=== PATIENT | female | born 1930 | race Caucasian/White ===

== ENCOUNTER 2017-05-09 09:43 | Inpatient (IN) | payer MEDICARE ==
[2017-05-09] MEDS ORDERED: SODIUM CHLORIDE 0.9% 500 ML IV STA (10:15)
--- NOTE | 2017-05-09 10:19 | ED ---
General Adult HPI - General Chief complaint: Shortness of Breath Stated complaint: Chest pain Time Seen by Provider: 05/09/17 09:55 Source: patient, family, RN notes reviewed Mode of arrival: wheelchair Limitations: no limitations - History of Present Illness Initial comments: This is an 86-year-old female presents emergency Department complaining of shortness of breath this morning. Patient states anytime she gets up and moves is much worse. Patient denies any chest pain or palpitation. Patient denies any recent cough. Patient denies any recent fever chills per patient denies abdominal pain patient denies nausea vomiting diarrhea. Patient states his morning she was a little bit lightheaded but no longer lightheaded. Patient states he was she sits up in bed she feels more short of breath than normal. Patient denies any calf swelling patient denies any increased edema. Patient states she does have a past history of congestive heart failure. - Related Data Home Medications Medication Instructions Recorded Confirmed Aspirin 325 mg PO DAILY 06/06/14 05/09/17 Furosemide [Lasix] 40 mg PO DAILY 06/06/14 05/09/17 Levothyroxine Sodium [Synthroid] 50 mcg PO DAILY 06/06/14 05/09/17 Lisinopril [Zestril] 2.5 mg PO HS 06/06/14 05/09/17 Metoprolol Tartrate [Lopressor] 50 mg PO BID 06/06/14 05/09/17 Pantoprazole Sodium [Protonix] 40 mg PO DAILY 06/06/14 05/09/17 Simvastatin [Zocor] 20 mg PO HS 06/06/14 05/09/17 Cholecalciferol (Vitamin D3) 2,000 unit PO DAILY 05/09/17 05/09/17 [Vitamin D3] traZODone HCL 50 mg PO HS PRN 05/09/17 05/09/17 Allergies Allergy/AdvReac Type Severity Reaction Status Date / Time No Known Allergies Allergy Verified 05/09/17 11:10 Review of Systems ROS Statement: Those systems with pertinent positive or pertinent negative responses have been documented in the HPI. ROS Other: All systems not noted in ROS Statement are negative. Past Medical History Past Medical History: GERD/Reflux, Hyperlipidemia, Hypertension, Thyroid Disorder History of Any Multi-Drug Resistant Organisms: None Reported Past Surgical History: AICD, Tonsillectomy Additional Past Surgical History / Comment(s): vein stripping Past Psychological History: No Psychological Hx Reported Smoking Status: Never smoker Past Alcohol Use History: None Reported General Exam - General Exam Comments Initial Comments: GENERAL: Patient is well-developed and well-nourished. Patient is nontoxic and well- hydrated and is in mild distress. ENT: Neck is soft and supple. No significant lymphadenopathy is noted. Oropharynx is clear. Moist mucous membranes. Neck has full range of motion without eliciting any pain. . EYES: The sclera were anicteric and conjunctiva were pink and moist. Extraocular movements were intact and pupils were equal round and reactive to light. Eyelids were unremarkable. PULMONARY: Unlabored respirations. Good breath sounds bilaterally. No audible rales rhonchi or wheezing was noted. CARDIOVASCULAR: There is a regular rate and rhythm without any murmurs gallops or rubs. ABDOMEN: Soft and nontender with normal bowel sounds. No palpable organomegaly was noted. There is no palpable pulsatile mass. SKIN: Skin is clear with no lesions or rashes and otherwise unremarkable. NEUROLOGIC: Patient is alert and oriented x3. Cranial nerves II through XII are grossly intact. Motor and sensory are also intact. Normal speech, volume and content. Symmetrical smile. MUSCULOSKELETAL: Normal extremities with adequate strength and full range of motion. No lower extremity swelling or edema. No calf tenderness. LYMPHATICS: No significant lymphadenopathy is noted PSYCHIATRIC: Normal psychiatric evaluation. Normal interpersonal interactions appears functionally intact in deals appropriately with others. No signs of depression. No signs of anxiety. Limitations: no limitations Course Vital Signs 05/09/17 05/09/17 05/09/17 09:45 10:07 11:26 Temperature 96.9 F L Pulse Rate 82 75 Respiratory 16 24 16 Rate Blood Pressure 132/80 126/85 O2 Sat by Pulse 97 96 Oximetry 05/09/17 11:35 Temperature Pulse Rate 81 Respiratory 20 Rate Blood Pressure 128/81 O2 Sat by Pulse 95 Oximetry Medical Decision Making - Medical Decision Making EKG shows sinus rhythm at 74 bpm MN interval is 238 QRS is 136 QT interval 426 QTC is 472. EKG shows no ST segment elevation or depression. Patient does have T-wave inversions in leads 1 to aVL as well as V4 through V6. Chest x-ray shows congestive heart failure. I gave the patient Lasix. Brought the patient admitted for continued Lasix on the floor. I spoke with Dr. Gan agreed to admit the patient admitted the patient I consulted cardiology. - Lab Data Result diagrams: 05/09/17 10:04 05/09/17 10:04 Lab Results 05/09/17 05/09/17 05/09/17 Range/Units 10:04 10:04 10:04 WBC 5.1 (3.8-10.6) k/uL RBC 3.59 L (3.80-5.40) m/uL Hgb 10.8 L (11.4-16.0) gm/dL Hct 34.0 (34.0-46.0) % MCV 94.8 (80.0-100.0) fL MCH 30.2 (25.0-35.0) pg MCHC 31.9 (31.0-37.0) g/dL RDW 15.4 (11.5-15.5) % Plt Count 194 (150-450) k/uL Neutrophils % 72 % Lymphocytes % 19 % Monocytes % 4 % Eosinophils % 3 % Basophils % 1 % Neutrophils # 3.6 (1.3-7.7) k/uL Lymphocytes # 1.0 (1.0-4.8) k/uL Monocytes # 0.2 (0-1.0) k/uL Eosinophils # 0.2 (0-0.7) k/uL Basophils # 0.0 (0-0.2) k/uL Hypochromasia Slight PT (9.0-12.0) sec INR (<1.2) APTT (22.0-30.0) sec D-Dimer (<0.60) mg/L FEU Sodium 142 (137-145) mmol/L Potassium 4.9 (3.5-5.1) mmol/L Chloride 110 H (98-107) mmol/L Carbon Dioxide 17 L (22-30) mmol/L Anion Gap 15 mmol/L BUN 44 H (7-17) mg/dL Creatinine 1.98 H (0.52-1.04) mg/dL Est GFR (MDRD) Af Amer 29 (>60 ml/min/1.73 sqM) Est GFR (MDRD) Non-Af 24 (>60 ml/min/1.73 sqM) Glucose 163 H (74-99) mg/dL Calcium 9.0 (8.4-10.2) mg/dL Magnesium 1.7 (1.6-2.3) mg/dL Total Bilirubin 0.8 (0.2-1.3) mg/dL AST 133 H (14-36) U/L ALT 178 H (9-52) U/L Alkaline Phosphatase 239 H (38-126) U/L Total Creatine Kinase 71 (30-135) U/L CK-MB (CK-2) 2.0 (0.0-2.4) ng/mL CK-MB (CK-2) Rel Index 2.8 Troponin I 0.083 H* (0.000-0.034) ng/mL NT-Pro-B Natriuret Pep pg/mL Total Protein 6.5 (6.3-8.2) g/dL Albumin 3.9 (3.5-5.0) g/dL 05/09/17 05/09/17 Range/Units 10:04 10:04 WBC (3.8-10.6) k/uL RBC (3.80-5.40) m/uL Hgb (11.4-16.0) gm/dL Hct (34.0-46.0) % MCV (80.0-100.0) fL MCH (25.0-35.0) pg MCHC (31.0-37.0) g/dL RDW (11.5-15.5) % Plt Count (150-450) k/uL Neutrophils % % Lymphocytes % % Monocytes % % Eosinophils % % Basophils % % Neutrophils # (1.3-7.7) k/uL Lymphocytes # (1.0-4.8) k/uL Monocytes # (0-1.0) k/uL Eosinophils # (0-0.7) k/uL Basophils # (0-0.2) k/uL Hypochromasia PT 12.6 H (9.0-12.0) sec INR 1.3 H (<1.2) APTT 24.8 (22.0-30.0) sec D-Dimer 7.39 H (<0.60) mg/L FEU Sodium (137-145) mmol/L Potassium (3.5-5.1) mmol/L Chloride (98-107) mmol/L Carbon Dioxide (22-30) mmol/L Anion Gap mmol/L BUN (7-17) mg/dL Creatinine (0.52-1.04) mg/dL Est GFR (MDRD) Af Amer (>60 ml/min/1.73 sqM) Est GFR (MDRD) Non-Af (>60 ml/min/1.73 sqM) Glucose (74-99) mg/dL Calcium (8.4-10.2) mg/dL Magnesium (1.6-2.3) mg/dL Total Bilirubin (0.2-1.3) mg/dL AST (14-36) U/L ALT (9-52) U/L Alkaline Phosphatase (38-126) U/L Total Creatine Kinase (30-135) U/L CK-MB (CK-2) (0.0-2.4) ng/mL CK-MB (CK-2) Rel Index Troponin I (0.000-0.034) ng/mL NT-Pro-B Natriuret Pep 5600 pg/mL Total Protein (6.3-8.2) g/dL Albumin (3.5-5.0) g/dL Critical Care Time Critical Care Time: Yes Total Critical Care Time: 35 Disposition Clinical Impression: Acute pulmonary edema Disposition: ADMITTED IP TO THIS HOSP Referrals: Nik Tomlin DO [Primary Care Provider] - 1-2 days Time of Disposition: 12:56
--- NOTE | 2017-05-09 10:34 | XR ---
EXAMINATION TYPE: XR chest 2V DATE OF EXAM: 05/09/2017 COMPARISON: Chest x-ray July 22, 2010 HISTORY: Dyspnea today. TECHNIQUE: Frontal and lateral views of the chest are obtained. FINDINGS: There is persistent cardiomegaly with single lead pacemaker/AICD and atherosclerotic thora cic aorta. There is chronic parenchymal change with mild central vascular congestion felt present the re is blunting of posterior costophrenic angles suggesting tiny effusions. There is additional more p rominent left greater than right bibasilar opacity worrisome for developing infiltrate and/or atelect asis. The osseous structures are demineralized. Some multilevel spurring in the spine is present. IMPRESSION: Consider mild CHF exacerbation as there is cardiomegaly with tiny bilateral pleural effu sions and mild central vascular congestion felt present. In addition underlying left greater than rig ht bibasilar infiltrates and/or atelectasis is noted.
[2017-05-09 10:51] LABS: Basophils % (A) 1 %; CH 29.5; CHCM 31.3; Eosinophils # (A) 0.2 k/uL (0-0.7); Eosinophils % (A) 3 %; HDW 2.51; HGB 10.8 gm/dL (11.4-16.0); Hypochromasia Slight; Luc # (Auto) 0.05; Luc % (Auto) 1; Lymphocytes % (A) 19 %; MCH 30.2 pg (25.0-35.0); MCHC 31.9 g/dL (31.0-37.0); MCV 94.8 fL (80.0-100.0); Mean Platelet Volume 9.6; Monocytes # (A) 0.2 k/uL (0-1.0); Monocytes % (A) 4 %; Neutrophils # (A) 3.6 k/uL (1.3-7.7); Neutrophils % (A) 72 %; RBC 3.59 m/uL (3.80-5.40); RDW 15.4 % (11.5-15.5); WBC 5.1 k/uL (3.8-10.6); WBC (Perox) 5.64
[2017-05-09 10:59] LABS: INR 1.3 (<1.2); Partial Thromboplastin Time 24.8 sec (22.0-30.0); Prothrombin Time 12.6 sec (9.0-12.0)
[2017-05-09 11:00] LABS: Magnesium 1.7 mg/dL (1.6-2.3); Potassium 4.9 mmol/L (3.5-5.1); Total Bilirubin 0.8 mg/dL (0.2-1.3); Total Protein 6.5 g/dL (6.3-8.2)
[2017-05-09] MEDS ORDERED: FUROSEMIDE 10 MG/ML 4 ML VIAL IV STA ×2 (11:25→12:51)
[2017-05-09 11:30] LABS: Troponin I 0.083 ng/mL (0.000-0.034)
--- NOTE | 2017-05-09 12:37 | NM ---
EXAMINATION TYPE: NM pul vent and perfuse DATE OF EXAM: 05/09/2017 COMPARISON: Chest x-ray from earlier today. HISTORY: Dyspnea. TECHNIQUE: Utilizing inhalation of 70.5 mCi Tc 99m DTPA aerosol and intravenous injection of 5.23 mC i of Tc 99m MAA, ventilation and perfusion images are acquired post injection in multiple projections . FINDINGS: Some small matching defects are felt present in the bilateral lower lungs. There is no evidence of mi smatched defects. IMPRESSION: Low probability for pulmonary embolism
[2017-05-09] MEDS ORDERED: NITROGLYCERIN OINT 1 INCH/GM PACKET TOPICAL STA (13:00)
[2017-05-09] MEDS: NITROGLYCERIN OINT 1 INCH/GM PACKET TOPICAL SCH ×2 (17:51→21:04)
[2017-05-09 18:13] VITALS: BMI 21.7
[2017-05-09] MEDS ORDERED: LISINOPRIL 2.5 MG TAB PO SCH (21:00)
[2017-05-09] MEDS ORDERED: ATORVASTATIN 10 MG TAB PO SCH (21:00)
[2017-05-09] MEDS ORDERED: traZODone HCL 50 MG TAB PO PRN (21:00)
[2017-05-09] MEDS: FUROSEMIDE 10 MG/ML 4 ML VIAL IV SCH (21:03)
[2017-05-09] MEDS: METOPROLOL TARTRATE 50 MG TAB PO SCH (21:04)
--- NOTE | 2017-05-09 21:27 | P.HPIM ---
<Jerrica Contreras A - Last Filed: 05/09/17 20:43> History of Present Illness H&P Date: 05/09/17 Chief Complaint: Shortness of breath HISTORY OF PRESENT ILLNESS: This is an 86-year-old female patient of Dr. Sebastian [facility]. Chronic stable medical conditions include GERD hyperlipidemia hypertension hypothyroidism. Patient presented to the emergency department after having an episode of sudden onset shortness of breath, sweating nausea, and falling. Patient awoken from sleep feeling nauseated, sat up on the edge of the bed, felt dizzy, lightheaded , tried to stand up, and fell to her knees. Patient was able to get back up on her feet take herself to the bathroom where she continued to feel nauseated, like she was going to pass out, was extremely short of breath. Return to her bed, stayed there till morning, got up out of bed told her daughter who lives next door of the episode and was subsequently brought in for further evaluation. GEN.: Tired EYES: [None] HEENT: [None] NECK: [None] RESPIRATORY: [Shortness of breath on exertion and sleeps with one pillow ] CARDIOVASCULAR: [None] GASTROINTESTINAL: [None] GENITOURINARY: [None] MUSCULOSKELETAL: [None] LYMPHATICS: [Hypothyroid] HEMATOLOGICAL: [None] PSYCHIATRY: [None] NEUROLOGICAL: [None] SOCIAL HISTORY: Lives alone, daughter lives next-door no smoking or alcohol or illicit drug use FAMILY HISTORY: Myocardial infarction VITAL SIGNS: [Temperature 96.9, pulse 82 respiratory rate 16, blood pressure 132 /80, oxygen saturation 97 % on room air] GENERAL: [Average built, sitting up, comfortable]. EYES: [Pupils equal. Conjunctiva eliel]l. HEENT: [External appearance of nose and ears normal, oral cavity grossly normal] . NECK: [JVD not raised; masses not palpable]. HEART: [First and second heart sounds are normal; no edema]. LUNGS:[ Respiratory rate normal; fair airway clearance]. ABDOMEN: [Soft, nontender, liver spleen not palpable, no masses palpable]. LYMPHATICS: [No lymph nodes palpable in the axilla and neck]. PSYCH: [Alert and oriented x3; mood and affect eliel]l. NEUROLOGICAL: [Cranial nerves grossly intact; no facial asymmetry, power and sensation grossly intact]. Review of Systems GEN.: Tired EYES: [None] HEENT: [None] NECK: [None] RESPIRATORY: [Shortness of breath on exertion and sleeps with one pillow ] CARDIOVASCULAR: [None] GASTROINTESTINAL: [None] GENITOURINARY: [None] MUSCULOSKELETAL: [None] LYMPHATICS: [Hypothyroid] HEMATOLOGICAL: [None] PSYCHIATRY: [None] NEUROLOGICAL: [None] Past Medical History Past Medical History: GERD/Reflux, Hyperlipidemia, Hypertension, Thyroid Disorder History of Any Multi-Drug Resistant Organisms: None Reported Past Surgical History: AICD, Pacemaker, Tonsillectomy Additional Past Surgical History / Comment(s): vein stripping Past Anesthesia/Blood Transfusion Reactions: No Reported Reaction Type of Cardiac Device: Permanent Pacemaker, AICD Device Placement Date:: 2011 Past Psychological History: No Psychological Hx Reported Smoking Status: Never smoker Past Alcohol Use History: Rare - Past Family History Father Family Medical History: Myocardial Infarction (ME) Mother History Unknown: Yes Medications and Allergies Home Medications Medication Instructions Recorded Confirmed Type Aspirin 325 mg PO DAILY 06/06/14 05/09/17 History Furosemide [Lasix] 40 mg PO DAILY 06/06/14 05/09/17 History Levothyroxine Sodium [Synthroid] 50 mcg PO DAILY 06/06/14 05/09/17 History Lisinopril [Zestril] 2.5 mg PO HS 06/06/14 05/09/17 History Metoprolol Tartrate [Lopressor] 50 mg PO BID 06/06/14 05/09/17 History Pantoprazole Sodium [Protonix] 40 mg PO DAILY 06/06/14 05/09/17 History Simvastatin [Zocor] 20 mg PO HS 06/06/14 05/09/17 History Cholecalciferol (Vitamin D3) 2,000 unit PO DAILY 05/09/17 05/09/17 History [Vitamin D3] traZODone HCL 50 mg PO HS PRN 05/09/17 05/09/17 History Allergies Allergy/AdvReac Type Severity Reaction Status Date / Time No Known Allergies Allergy Verified 05/09/17 11:10 Physical Exam Vitals: Vital Signs Temp Pulse Pulse Resp BP BP Pulse Ox 05/09/17 16:00 97.1 F L 82 18 146/74 97 05/09/17 11:35 81 20 128/81 95 05/09/17 11:26 75 16 126/85 96 05/09/17 10:07 24 05/09/17 09:45 96.9 F L 82 16 132/80 97 Intake and Output 05/09/17 05/09/17 05/09/17 06:59 14:59 22:59 Intake Total 360 Balance 360 Intake: Oral 360 Other: Voiding Method Toilet Weight 61.235 kg Patient Weight 05/10/17 06:59 Weight 61.235 kg VITAL SIGNS: [Temperature 96.9, pulse 82 respiratory rate 16, blood pressure 132 /80, oxygen saturation 97 % on room air] GENERAL: [Average built, sitting up, comfortable]. EYES: [Pupils equal. Conjunctiva eliel]l. HEENT: [External appearance of nose and ears normal, oral cavity grossly normal] . NECK: [JVD not raised; masses not palpable]. HEART: [First and second heart sounds are normal; no edema]. LUNGS:[ Respiratory rate normal; fair airway clearance]. ABDOMEN: [Soft, nontender, liver spleen not palpable, no masses palpable]. LYMPHATICS: [No lymph nodes palpable in the axilla and neck]. PSYCH: [Alert and oriented x3; mood and affect eliel]l. NEUROLOGICAL: [Cranial nerves grossly intact; no facial asymmetry, power and sensation grossly intact]. Results CBC & Chem 7: 05/09/17 10:04 05/09/17 10:04 Labs: Abnormal Lab Results - Last 24 Hours (Table) 05/09/17 05/09/17 05/09/17 Range/Units 10:04 10:04 10:04 RBC 3.59 L (3.80-5.40) m/uL Hgb 10.8 L (11.4-16.0) gm/dL PT (9.0-12.0) sec INR (<1.2) D-Dimer (<0.60) mg/L FEU Chloride 110 H (98-107) mmol/L Carbon Dioxide 17 L (22-30) mmol/L BUN 44 H (7-17) mg/dL Creatinine 1.98 H (0.52-1.04) mg/dL Glucose 163 H (74-99) mg/dL AST 133 H (14-36) U/L ALT 178 H (9-52) U/L Alkaline Phosphatase 239 H (38-126) U/L Troponin I 0.083 H* (0.000-0.034) ng/mL 05/09/17 Range/Units 10:04 RBC (3.80-5.40) m/uL Hgb (11.4-16.0) gm/dL PT 12.6 H (9.0-12.0) sec INR 1.3 H (<1.2) D-Dimer 7.39 H (<0.60) mg/L FEU Chloride (98-107) mmol/L Carbon Dioxide (22-30) mmol/L BUN (7-17) mg/dL Creatinine (0.52-1.04) mg/dL Glucose (74-99) mg/dL AST (14-36) U/L ALT (9-52) U/L Alkaline Phosphatase (38-126) U/L Troponin I (0.000-0.034) ng/mL Thrombosis Risk Factor Assmnt - Choose All That Apply Any of the Below Risk Factors Present?: Yes Each Factor Represents 1 point: Heart failure (<1month) Other Risk Factors: Yes Each Risk Factor Represents 3 Points: Age 75 years or older Other congenital or acquired thrombophilia - If yes, enter type in comment: No Thrombosis Risk Factor Assessment Total Risk Factor Score: 4 Thrombosis Risk Factor Assessment Level: Moderate Risk Assessment and Plan Plan: ASSESSMENT: -Sudden onset shortness of breath and weakness sweating nausea vomiting, dizziness lightheaded, in the differential is acute coronary syndrome or unstable angina., -Gastroesophageal reflux disease -Hyperlipidemia -Essential hypertension -Hypothyroidism -Osteoarthritis multiple joints, 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 Plan of care discussed with the patient she is in agreement. <Rubin Gan - Last Filed: 05/09/17 23:02> Physical Exam Vitals: Vital Signs Temp Pulse Pulse Resp BP BP Pulse Ox 05/09/17 16:00 97.1 F L 82 18 146/74 97 05/09/17 11:35 81 20 128/81 95 05/09/17 11:26 75 16 126/85 96 05/09/17 10:07 24 05/09/17 09:45 96.9 F L 82 16 132/80 97 Intake and Output 08/10/2505/09/17 05/09/17 06:59 14:59 22:59 Intake Total 360 Balance 360 Intake: Oral 360 Other: Voiding Method Toilet Weight 61.235 kg Patient Weight 05/10/17 06:59 Weight 61.235 kg Results CBC & Chem 7: 05/09/17 10:04 05/09/17 10:04 Labs: Abnormal Lab Results - Last 24 Hours (Table) 05/09/17 05/09/17 05/09/17 Range/Units 10:04 10:04 10:04 RBC 3.59 L (3.80-5.40) m/uL Hgb 10.8 L (11.4-16.0) gm/dL PT (9.0-12.0) sec INR (<1.2) D-Dimer (<0.60) mg/L FEU Chloride 110 H (98-107) mmol/L Carbon Dioxide 17 L (22-30) mmol/L BUN 44 H (7-17) mg/dL Creatinine 1.98 H (0.52-1.04) mg/dL Glucose 163 H (74-99) mg/dL AST 133 H (14-36) U/L ALT 178 H (9-52) U/L Alkaline Phosphatase 239 H (38-126) U/L Troponin I 0.083 H* (0.000-0.034) ng/mL 05/09/17 05/09/17 Range/Units 10:04 20:41 RBC (3.80-5.40) m/uL Hgb (11.4-16.0) gm/dL PT 12.6 H (9.0-12.0) sec INR 1.3 H (<1.2) D-Dimer 7.39 H (<0.60) mg/L FEU Chloride (98-107) mmol/L Carbon Dioxide (22-30) mmol/L BUN (7-17) mg/dL Creatinine (0.52-1.04) mg/dL Glucose (74-99) mg/dL AST (14-36) U/L ALT (9-52) U/L Alkaline Phosphatase (38-126) U/L Troponin I 0.092 H* (0.000-0.034) ng/mL Assessment and Plan Plan: Attending note. Date of admission 05/09/2017 This patient is seen seen and examined by me today. Discussed with my nurse practitioner Ms. Contreras. Presenting complaint short of breath History of present complaint: This is a patient woke up about 2:00 in the morning felt she had flulike symptoms and became short of breath and went down on these feeling really weak short of breath tired. Remain short of breath no chest pain just admitted and rundown denied any fever. Significant past medical history GERD, hyperlipidemia, hypertension, hypothyroid , AICD that was checked 6 weeks ago On examination Temperature 96.9, 82, is 24, 132/80, 97% room air Average built laying in bed tired appearing Neck JVD not raised, masses are palpable Respiratory effort increase lungs decreased breath sounds Cardiovascular first seconds are normal minimal edema Psychiatry AO 3 mood affect normal Abdomen soft nontender liver spleen not palpable Investigations White count 5 pulmonary relevant and 0.8 potassium 4.9 BUN 44 creatinine 1.98 Chest x-ray reviewed by me today-fluid versus infiltrate Troponin 0.083, 0.092 ProBNP 5600 Assessment: -Acute shortness of breath this could be acute coronary syndrome with the without element of acute congestive heart failure -GERD -Hyperlipidemia -Essential hypertension -Hypothyroid thyroidism -AICD in place CODE STATUS DO NOT RESUSCITATE Plan: Will check a renal ultrasound. Getting IV Lasix, Get a nephrology pulmonary and cardiology consultation. 2-D echo has been ordered care was discussed with the patient
[2017-05-09] MEDS ORDERED: ACETAMINOPHEN TAB 325 MG TAB PO PRN (21:37)
[2017-05-10] MEDS: FUROSEMIDE 10 MG/ML 4 ML VIAL IV SCH ×2 (04:15→11:49)
[2017-05-10 04:55] VITALS: PULSE 77; RESP 16; TEMP 97.6
[2017-05-10] MEDS ORDERED: LEVOTHYROXINE 50 MCG TAB PO SCH (06:30)
[2017-05-10 06:34] LABS: Basophils # (A) 0.1 k/uL (0-0.2); Basophils % (A) 1 %; CH 29.7; CHCM 31.8; Eosinophils # (A) 0.2 k/uL (0-0.7); Eosinophils % (A) 5 %; HCT 32.2 % (34.0-46.0); HDW 2.43; HGB 10.1 gm/dL (11.4-16.0); Luc # (Auto) 0.07; Luc % (Auto) 2; Lymphocytes # (A) 0.8 k/uL (1.0-4.8); Lymphocytes % (A) 19 %; MCH 29.6 pg (25.0-35.0); MCHC 31.4 g/dL (31.0-37.0); MCV 94.1 fL (80.0-100.0); Monocytes # (A) 0.3 k/uL (0-1.0); Monocytes % (A) 6 %; Neutrophils # (A) 2.8 k/uL (1.3-7.7); Neutrophils % (A) 67 %; RBC 3.42 m/uL (3.80-5.40); WBC 4.2 k/uL (3.8-10.6); WBC (Perox) 4.58
[2017-05-10 06:45] LABS: Calcium 8.9 mg/dL (8.4-10.2); Potassium 4.5 mmol/L (3.5-5.1)
[2017-05-10] MEDS ORDERED: PANTOPRAZOLE 40 MG TABLET PO SCH (07:30)
[2017-05-10] MEDS ORDERED: ENOXAPARIN 30 MG/0.3 ML SYRINGE SQ SCH (09:00)
[2017-05-10] MEDS: METOPROLOL TARTRATE 50 MG TAB PO SCH (09:09)
--- NOTE | 2017-05-10 10:18 | US ---
"EXAMINATION TYPE: US abdomen comp/pelvis limited DATE OF EXAM: 05/10/2017 COMPARISON: NONE CLINICAL HISTORY: r/o AAA, renal failure. EXAM MEASUREMENTS: Liver Length: 13.8 cm Gallbladder Wall: 0.2 cm CBD: 0.5 cm Spleen: 8.0 cm Right Kidney: 10.3 x 3.8 x 5.0 cm Left Kidney: 7.5 x 3.8 x 3.6 cm Patient had difficulty holding her breath, limiting study. Pancreas: at the pancreatic head there is a possible complex mass measuring 2.5 x 2.1 x 2.8cm, this could sit anterior or be within the pancreas Liver: limited visualization due to patient inability to hold her breath Gallbladder: wnl CBD: wnl Spleen: wnl Right Kidney: scattered echogenic foci, possibly calcified vessels Left Kidney: atrophied Upper IVC: wnl Abd Aorta: Proximal portion obscured by bowel gas. Fusiform shaped AAA, mid portion measures 7.2 x 6 .9cm, distal measures 5.1 x 6.0cm. This previously measured 4.1 cm in the mid abdomen and through 0.6 cm distally. Turbulent flow is noted within this aneurysm as well as extensive amount of eccentric a theromatous plaquing versus less likely false lumen and chronic dissection. Bladder: wnl Right probable pleural effusion IMPRESSION: 1. Large fusiform abdominal aortic aneurysm measuring up to 7.2 x 6.9 cm, progressed from the prior e xam. Extensive amount of eccentric atheromatous plaquing versus less likely chronic dissection is not ed. 2. 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 Note there is no ductal dilatation within the pancreas, and therefore adenocarcinoma is considered unlikely. 3. Partial visualization of the small right pleural effusion. A Red message has been communicated to Rubin Gan MD via the [facility] | Critical Result sy stem on 05/10/2017 10:15 AM, Message ID [id number]."
--- NOTE | 2017-05-10 11:35 | ECHOF ---
Referral Reason:assess LV function MEASUREMENTS -------- HEIGHT: 165.1 cm WEIGHT: 76.2 kg BP: 130/40 IVSd: 1.3 cm (0.6 - 1.1) LVIDd: 6.5 cm (3.9 - 5.3) LVPWd: 0.9 cm (0.6 - 1.1) IVSs: 1.3 cm LVIDs: 5.4 cm LVPWs: 1.2 cm LAESV Index (A-L): 61.38 ml/m Ao Diam: 3.4 cm (2.0 - 3.7) AV Cusp: 1.3 cm (1.5 - 2.6) LA Diam: 3.7 cm (2.7 - 3.8) MV E Timo: 0.79 m/s MV DecT: 290 ms MV A Timo: 0.90 m/s MV E/A Ratio: 0.88 RAP: 5.00 mmHg RVSP: 46.14 mmHg FINDINGS -------- Paced rhythm. This was a technically adequate study. The left ventricle is moderately dilated. Left ventricular wall thickness is normal. There is severe global hypokinesis of LV . Overall left ventricular systolic function is severely impaired with, an EF < 20%. Mitral Doppler inflow pattern suggests diastolic filling abnormality 13.62. The right ventricle is normal in size. LA is severely dilated >40 ml/m2 The right atrial size is normal. There is mild aortic valve sclerosis. There is no evidence of aortic regurgitation. Mild mitral annular calcification present. Moderate mitral regurgitation is present. Moderate tricuspid regurgitation present. There is mild to moderate pulmonary hypertension. The right ventricular systolic pressure, as measured by Doppler, is 46.14mmHg. Trace/mild (physiologic) pulmonic regurgitation. Echo free space may represent effusion or a pericardial fat pad. CONCLUSIONS -------- 1. Left ventricular wall thickness is normal. 2. There is mild to moderate pulmonary hypertension. 3. The right ventricular systolic pressure, as measured by Doppler, is 46.14mmHg. 4. Trace/mild (physiologic) pulmonic regurgitation. 5. Echo free space may represent effusion or a pericardial fat pad. 6. There is severe global hypokinesis of LV . 7. Overall left ventricular systolic function is severely impaired with, an EF < 20%. 8. Mitral Doppler inflow pattern suggest diastolic filling abnormality 13.62. 9. LA is severely dilated >40 ml/m2 10. There is mild aortic valve sclerosis. 11. Mild mitral annular calcification present. 12. Moderate mitral regurgitation is present. 13. Moderate tricuspid regurgitation present. PLUMBER ASSISTANT: Xochilt Aguilera RDCS
[2017-05-10] MEDS ORDERED: CHOLECALCIFEROL 1,000 UNIT TAB PO SCH (12:00)
[2017-05-10 12:08] VITALS: BP 133/71
--- NOTE | 2017-05-10 12:38 | P.CNPUL ---
History of Present Illness Consult date: 05/10/17 Requesting physician: Rubin Gan Reason for consult: dyspnea, abnormal CXR/CT Chief complaint: Shortness of breath History of present illness: This is a very pleasant 86-year-old female patient who follows with Dr. menchaca this is her primary care physician. She has a history of lipidemia, hypertension, hypothyroidism, gastroesophageal reflux disease, cardiomyopathy with status post AICD placement. No previous pulmonary history. No emphysema, no asthma. She is a lifelong nonsmoker. 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 She is also having some progressive weakness. She denies any cough congestion. No chills or night sweats. No nausea vomiting diarrhea. No chest pain, palpitations lightheadedness or dizziness. Her 2 main complaint is that of sudden onset of dyspnea. VQ scan revealed low probability for pulmonary embolism. Her chest x-ray revealed some mild hot fluid volume overload and small lateral pleural effusions. Her proBNP level was 5600 currently 70,400. Troponin 0.083, 0.092, 0.091. Initial creatinine 1.98 currently 2.06. There was some elevated liver enzymes AST 133, ALT 178, alk phos 239. Echocardiogram revealed moderate pulmonary hypertension with an RVSP of 46 mmHg. There is severe global hypokinesia of the left ventricle with severely impaired left ventricular systolic function with estimated ejection fraction less than 20%. An abdominal ultrasound revealed a large fusiform abdominal aortic aneurysm measuring up to 7.2 x 6.9 cm which had progressed from the previous exam. There is extensive amount of eccentric atheromatous plaquing versus less likely chronic dissection noted. There is also a complex mass associated with the head of the pancreas and a small right pleural effusion noted. Her hemoglobin is 10.1. She has remained hemodynamically stable. Current blood pressure 133/71 with a mean arterial pressure of 91. She is afebrile. She is maintaining good O2 saturations in the upper 90s on room air. She is awake and alert in no acute distress. She is breathing easier today as compared to yesterday. Review of Systems 14 point review of system was conducted. All negative other than as mentioned in the HPI. Past Medical History Past Medical History: GERD/Reflux, Hyperlipidemia, Hypertension, Thyroid Disorder History of Any Multi-Drug Resistant Organisms: None Reported Past Surgical History: AICD, Pacemaker, Tonsillectomy Additional Past Surgical History / Comment(s): vein stripping Past Anesthesia/Blood Transfusion Reactions: No Reported Reaction Type of Cardiac Device: Permanent Pacemaker, AICD Device Placement Date:: 2011 Past Psychological History: No Psychological Hx Reported Smoking Status: Never smoker Past Alcohol Use History: Rare - Past Family History Father Family Medical History: Myocardial Infarction ([place]) Mother History Unknown: Yes Medications and Allergies Home Medications Medication Instructions Recorded Confirmed Type Aspirin 325 mg PO DAILY 06/06/14 05/09/17 History Furosemide [Lasix] 40 mg PO DAILY 06/06/14 05/09/17 History Levothyroxine Sodium [Synthroid] 50 mcg PO DAILY 06/06/14 05/09/17 History Lisinopril [Zestril] 2.5 mg PO HS 06/06/14 05/09/17 History Metoprolol Tartrate [Lopressor] 50 mg PO BID 06/06/14 05/09/17 History Pantoprazole Sodium [Protonix] 40 mg PO DAILY 06/06/14 05/09/17 History Simvastatin [Zocor] 20 mg PO HS 06/06/14 05/09/17 History Cholecalciferol (Vitamin D3) 2,000 unit PO DAILY 05/09/17 05/09/17 History [Vitamin D3] traZODone HCL 50 mg PO HS PRN 05/09/17 05/09/17 History Allergies Allergy/AdvReac Type Severity Reaction Status Date / Time No Known Allergies Allergy Verified 05/09/17 11:10 Physical Exam Vitals: Vital Signs Temp Pulse Resp BP Pulse Ox 05/10/17 12:02 97.6 F 74 16 133/71 97 05/10/17 09:15 97.6 F 77 16 133/72 100 05/10/17 04:00 97.6 F 77 16 121/77 98 05/10/17 00:00 96.5 F L 69 18 117/62 96 05/09/17 20:00 100.3 F H 82 18 121/74 96 05/09/17 16:00 97.1 F L 82 18 146/74 97 Intake and Output 05/09/17 05/10/17 05/10/17 22:59 06:59 14:59 Intake Total 360 Balance 360 Intake: Oral 360 Other: Voiding Method Toilet Toilet Toilet # Voids 2 1 Weight 76.5 kg GENERAL EXAM: Alert, comfortable in no apparent distress. HEAD: Normocephalic. EYES: Normal reaction of pupils, equal size. NOSE: Clear with pink turbinates. THROAT: No erythema or exudates. NECK: No masses, no JVD. CHEST: No chest wall deformity. LUNGS: Equal air entry with crackles in the posterior bases. CVS: S1 and S2 normal with an audible murmur, regular rhythm. ABDOMEN: No hepatosplenomegaly, normal bowel sounds, no guarding or rigidity. SPINE: No scoliosis or deformity SKIN: No rashes CENTRAL NERVOUS SYSTEM: No focal deficits, tone is normal in all 4 extremities. Extremities: There is trace peripheral edema. No clubbing, no cyanosis. Peripheral pulses are intact. Results - Laboratory Findings CBC and BMP: 05/10/17 05:59 05/10/17 05:59 PT/INR, D-dimer PT 12.6 sec (9.0-12.0) H 05/09/17 10:04 INR 1.3 (<1.2) H 05/09/17 10:04 D-Dimer 7.39 mg/L FEU (<0.60) H 05/09/17 10:04 Abnormal lab findings: Abnormal Labs 05/09/17 05/09/17 05/09/17 10:04 10:04 10:04 RBC 3.59 L Hgb 10.8 L Hct Plt Count Lymphocytes # PT INR D-Dimer Chloride 110 H Carbon Dioxide 17 L BUN 44 H Creatinine 1.98 H Glucose 163 H AST 133 H ALT 178 H Alkaline Phosphatase 239 H Troponin I 0.083 H* 05/09/17 05/09/17 05/10/17 10:04 20:41 01:53 RBC Hgb Hct Plt Count Lymphocytes # PT 12.6 H INR 1.3 H D-Dimer 7.39 H Chloride Carbon Dioxide BUN Creatinine Glucose AST ALT Alkaline Phosphatase Troponin I 0.092 H* 0.091 H* 05/10/17 05/10/17 05:59 05:59 RBC 3.42 L Hgb 10.1 L Hct 32.2 L Plt Count 137 L Lymphocytes # 0.8 L PT INR D-Dimer Chloride 108 H Carbon Dioxide BUN 46 H Creatinine 2.06 H Glucose AST ALT Alkaline Phosphatase Troponin I - Diagnostic Findings Chest x-ray: image reviewed Assessment and Plan Plan: Impression: #1 Acute exacerbation of chronic systolic congestive heart failure in a patient with estimated ejection fraction less than 20%. #2 Severe cardiomyopathy, status post AICD placement. #3 Large fusiform abdominal aortic aneurysm measuring up to 7.2 x 6.9 cm which has progressed compared to previous. There is an extensive amount of eccentric atheromatous plaquing versus less likely chronic dissection. #4 Complex mass associated with the head of the pancreas without ductal dilatation within the pancreas, less likely adenocarcinoma. Her graft #5 Hyperlipidemia. #5 Hypertension. #6 Hypothyroidism. #7 Gastric esophageal reflux disease. #8 Moderate pulmonary hypertension with an RVSP of 46 mmHg. Plan: The patient was seen and evaluated by Dr. Abdi. Her chest x-ray, abdominal ultrasound, labs were all reviewed. She is currently stable from the pulmonary standpoint. We'll continue to treat her congestive heart failure. The plan is for possible transfer to [facility] in regards to the significant abdominal aortic aneurysm. In the interim, we'll continue with her current medications. We'll continue to follow. Time with Patient: Greater than 30
--- NOTE | 2017-05-10 13:04 | P.NPCON ---
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 She is also known to have an abdominal aortic aneurysm which is significantly larger than about 7 cm. Patient was admitted to the hospital with complaints of shortness of breath she denied any chest pains she denied any nausea or vomiting no abdominal pain. Serum creatinine was 1.98 mg/dL the time of admission this morning it is at 2.06. Milligrams per deciliter. Blood pressure has not been low. Patient is currently being diuresed she is maintained on Lasix 40 mg IV every 8 hours she is also on a small dose of Zestril at 2.5 mg daily. Patient denies any difficulty in urination she has been voiding good. There is a 7.2 cm into 6.9 cm aneurysm noted on abdominal ultrasound and patient is actually being transferred to [facility]. Review of Systems As per HPI other systems negative Past Medical History Past Medical History: GERD/Reflux, Hyperlipidemia, Hypertension, Thyroid Disorder History of Any Multi-Drug Resistant Organisms: None Reported Past Surgical History: AICD, Pacemaker, Tonsillectomy Additional Past Surgical History / Comment(s): vein stripping Past Anesthesia/Blood Transfusion Reactions: No Reported Reaction Type of Cardiac Device: Permanent Pacemaker, AICD Device Placement Date:: 2011 Past Psychological History: No Psychological Hx Reported Smoking Status: Never smoker Past Alcohol Use History: Rare - Past Family History Father Family Medical History: Myocardial Infarction ([place]) Mother History Unknown: Yes Medications and Allergies Home Medications Medication Instructions Recorded Confirmed Type Aspirin 325 mg PO DAILY 06/06/14 05/09/17 History Furosemide [Lasix] 40 mg PO DAILY 06/06/14 05/09/17 History Levothyroxine Sodium [Synthroid] 50 mcg PO DAILY 06/06/14 05/09/17 History Lisinopril [Zestril] 2.5 mg PO HS 06/06/14 05/09/17 History Metoprolol Tartrate [Lopressor] 50 mg PO BID 06/06/14 05/09/17 History Pantoprazole Sodium [Protonix] 40 mg PO DAILY 06/06/14 05/09/17 History Simvastatin [Zocor] 20 mg PO HS 06/06/14 05/09/17 History Cholecalciferol (Vitamin D3) 2,000 unit PO DAILY 05/09/17 05/09/17 History [Vitamin D3] traZODone HCL 50 mg PO HS PRN 05/09/17 05/09/17 History Allergies Allergy/AdvReac Type Severity Reaction Status Date / Time No Known Allergies Allergy Verified 05/09/17 11:10 Physical Exam Vitals: Vital Signs Temp Pulse Resp BP Pulse Ox 05/10/17 12:02 97.6 F 74 16 133/71 97 05/10/17 09:15 97.6 F 77 16 133/72 100 05/10/17 04:00 97.6 F 77 16 121/77 98 05/10/17 00:00 96.5 F L 69 18 117/62 96 05/09/17 20:00 100.3 F H 82 18 121/74 96 05/09/17 16:00 97.1 F L 82 18 146/74 97 Intake and Output 05/09/17 05/10/17 05/10/17 22:59 06:59 14:59 Intake Total 360 Balance 360 Intake: Oral 360 Other: Voiding Method Toilet Toilet Toilet # Voids 2 1 Weight 76.5 kg On examination patient is comfortable awake alert oriented 3. She is not in any acute distress. Blood pressure is 133/70 174, she is afebrile Examination of the heart S1 and S2 Examination lungs bilateral breath sounds are heard bilateral basal crackles are heard Abdomen is soft nontender Examination lower extremities shows no significant edema and [employer] exam is grossly intact patient is moving all 4 extremities. Results - Lab Results Most recent lab results Calcium 8.9 mg/dL (8.4-10.2) 05/10/17 05:59 Magnesium 1.7 mg/dL (1.6-2.3) 05/09/17 10:04 05/10/17 05:59 05/10/17 05:59 Assessment and Plan Plan: Assessment 1. Acute kidney injury associated with the CHF. Cardiorenal. Patient has not been hypotensive she does have a large aortic aneurysm and there was no comment on the renal arteries on the abdominal ultrasound. Currently patient has good urine output. I will continue with the IV Lasix. A urine analysis will be ordered. Patient is on a very low dose of RANI inhibitor's which we can continue for now. Previous creatinine was 0.8 on 04/04/2014 2. Large abdominal aortic aneurysm being transferred to [facility] for further care. 3. CHF fluid overload currently maintained on Lasix which we will continue. 4. Cardiomyopathy with EF of less than 20%. Next Plan Continue to diurese patient. Check urine analysis. May continue with current dose of Lasix and repeat labs in a.m. Agree with transfer of patient to tertiary care center in regards to the abdominal aortic aneurysm.
--- NOTE | 2017-05-10 17:01 | P.DS ---
Providers Date of admission: 05/09/17 12:56 Expected date of discharge: 05/10/17 Attending physician: Rubin Gan Consults: 05/09/17 12:56 Consult Physician Routine Consulting Provider: [facility] Consult Reason/Comments: Pulmonary edema Do you want consulting provider notified?: Yes 05/09/17 22:59 Consult Physician Routine Consulting Provider: Mesfin Abdi Consult Reason/Comments: sob Do you want consulting provider notified?: Yes Consult Physician Routine Consulting Provider: Jared Srivastava Consult Reason/Comments: renal failure Do you want consulting provider notified?: Yes 05/10/17 11:14 Consult Physician Routine Consulting Provider: Gurdeep Merino Consult Reason/Comments: AAA-7.5 cm Do you want consulting provider notified?: Yes Primary care physician: [facility] Course: Hospital course This is an 86-year-old female patient of Dr. [facility]. Chronic stable medical conditions include GERD hyperlipidemia hypertension hypothyroidism. Patient presented to the emergency department after having an episode of sudden onset shortness of breath, sweating nausea, and falling. Patient awoken from sleep feeling nauseated, sat up on the edge of the bed, felt dizzy, lightheaded , tried to stand up, and fell to her knees. Patient was able to get back up on her feet take herself to the bathroom where she continued to feel nauseated, like she was going to pass out, was extremely short of breath. Return to her bed, stayed there till morning, got up out of bed told her daughter who lives next door of the episode and was subsequently brought in for further evaluation. This was felt to be a combination of acute coronary syndrome and congestive heart failure. BUNs is 44 and creatinine 1.98 hence abdominal ultrasound was ordered that showed a abdominal aortic aneurysm of 7.2 cm. It did show that it had increased in size but did not give a exact duration. I called Dr. Sampson today and because of patient's age and high risk he said transfer the patient to [facility]. I spoke to the vascular bacon de rinder and patient was transferred there. Earlier I conveyed this to the patient and the family and set the patient may need require the aortic stent graft. The meantime patient' s 2-D echo came back showing an EF of about 20% On examination: Lungs decreased breath sounds, cardiac arrest her first seconds are normal, abdomen soft nontender Disposition vascular service at [facility] for higher level of care. 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 Code status is DO NOT RESUSCITATE Discharge planning more than 35 minutes Plan - Discharge Summary New Discharge Prescriptions: New Acetaminophen Tab [Tylenol] 650 mg PO Q4HR PRN tab PRN Reason: Fever and/ or MILD Pain Enoxaparin [Lovenox] 30 mg SQ DAILY syr Continue Simvastatin [Zocor] 20 mg PO HS Pantoprazole Sodium [Protonix] 40 mg PO DAILY Metoprolol Tartrate [Lopressor] 50 mg PO BID Lisinopril [Zestril] 2.5 mg PO HS Levothyroxine Sodium [Synthroid] 50 mcg PO DAILY Furosemide [Lasix] 40 mg PO DAILY Aspirin 325 mg PO DAILY traZODone HCL 50 mg PO HS PRN PRN Reason: SLEEP Cholecalciferol (Vitamin D3) [Vitamin D3] 2,000 unit PO DAILY Discharge Medication List Aspirin 325 mg PO DAILY 06/06/14 [History] Furosemide [Lasix] 40 mg PO DAILY 06/06/14 [History] Levothyroxine Sodium [Synthroid] 50 mcg PO DAILY 06/06/14 [History] Lisinopril [Zestril] 2.5 mg PO HS 06/06/14 [History] Metoprolol Tartrate [Lopressor] 50 mg PO BID 06/06/14 [History] Pantoprazole Sodium [Protonix] 40 mg PO DAILY 06/06/14 [History] Simvastatin [Zocor] 20 mg PO HS 06/06/14 [History] Cholecalciferol (Vitamin D3) [Vitamin D3] 2,000 unit PO DAILY 05/09/17 [History] traZODone HCL 50 mg PO HS PRN 05/09/17 [History] Acetaminophen Tab [Tylenol] 650 mg PO Q4HR PRN tab 05/10/17 [Rx] Enoxaparin [Lovenox] 30 mg SQ DAILY syr 05/10/17 [Rx] Follow up Appointment(s)/Referral(s): Nik Tomlin DO [Primary Care Provider] - 1-2 days Activity/Diet/Wound Care/Special Instructions: heart healthy diet Discharge Disposition: DC/[facility] INTERMEDIATE CARE FAC
== END 2017-05-10 14:05 | disposition short-term general hospital (02) | DRG 291 ==
LOC: EC 09:43 → 6SEL 12:56
PROVIDERS: ADMIT Hospitalist; ATTEND Hospitalist
DX: I13.0 Hypertensive heart and chronic kidney disease with heart failure and stage 1 through stage 4 chronic kidney disease, or unspecified chronic kidney disease (principal); I50.23 Acute on chronic systolic (congestive) heart failure; N18.4 Chronic kidney disease, stage 4 (severe); N17.9 Acute kidney failure, unspecified; I24.9 Acute ischemic heart disease, unspecified; I42.9 Cardiomyopathy, unspecified; I27.2 Other secondary pulmonary hypertension; K86.9 Disease of pancreas, unspecified; F32.9 Major depressive disorder, single episode, unspecified; E03.9 Hypothyroidism, unspecified; E78.5 Hyperlipidemia, unspecified; K21.9 Gastro-esophageal reflux disease without esophagitis; M19.91 Primary osteoarthritis, unspecified site; I71.4 Abdominal aortic aneurysm, without rupture; Z66 Do not resuscitate; Z79.82 Long term (current) use of aspirin; Z79.899 Other long term (current) drug therapy; Z82.49 Family history of ischemic heart disease and other diseases of the circulatory system; Z95.810 Presence of automatic (implantable) cardiac defibrillator
CPT/HCPCS: 36415; 71020; 76700; 76857; 78582; 80048; 80053; 82550; 82553; 83735; 83880; 84484; 85025; 85379; 85610; 85730; 93005; 93306; 96361; 96374; 99291

== ENCOUNTER 2018-07-17 15:58 | Emergency (ER) | payer MEDICARE ==
[2018-07-17] MEDS ORDERED: ACETAMINOPHEN IV (For NPO) 1,000 MG in SALINE 1 100ML.BAG IVPB STA (16:01)
[2018-07-17] MEDS ORDERED: SODIUM CHLORIDE 0.9% 500 ML 500 ML IV STA ×2 (16:02→17:40)
[2018-07-17] MEDS ORDERED: SODIUM CHLORIDE 0.9% 1,000 ML IV STA ×2 (16:02→17:40)
--- NOTE | 2018-07-17 16:06 | ED ---
Fall HPI - General Source: patient, family, EMS, RN notes reviewed - History of Present Illness MD Complaint: fall <Mesfin Jacob - Last Filed: 07/17/18 16:37> <Gordy Palacio - Last Filed: 07/17/18 20:45> - General Stated Complaint: Fall Time Seen by Provider: 07/17/18 16:00 - History of Present Illness Initial Comments: This is a 88-year-old female with a history of pulmonary edema in the past in addition to an inoperable abdominal aortic aneurysm who apparently fell about an hour before she was discovered by family members. The floor. She apparently try to get up out of the chair fell and hit a anterior wall. She sustained a laceration to her right side scalp which was wrapped she was brought in by EMS for evaluation she probably had no loss of consciousness is unclear whether she had any palpitations she is alert and oriented times one or 2 normally more so. No reports of fevers chills nausea vomiting sweats focal weakness. The patient is not on any blood thinners. (Mesfin Jacob) - Related Data Home Medications Medication Instructions Recorded Confirmed Aspirin 325 mg PO DAILY 06/06/14 07/17/18 Furosemide [Lasix] 40 mg PO DAILY 06/06/14 07/17/18 Lisinopril [Zestril] 2.5 mg PO HS 06/06/14 07/17/18 Metoprolol Tartrate [Lopressor] 50 mg PO BID 06/06/14 07/17/18 Pantoprazole Sodium [Protonix] 40 mg PO DAILY 06/06/14 07/17/18 Cholecalciferol (Vitamin D3) 2,000 unit PO DAILY 05/09/17 07/17/18 [Vitamin D3] traZODone HCL 50 mg PO HS PRN 05/09/17 07/17/18 Atorvastatin [Lipitor] 20 mg PO HS 07/17/18 07/17/18 Levothyroxine Sodium [Synthroid] 25 mcg PO DAILY 07/17/18 07/17/18 Ranitidine HCl 150 mg PO DAILY 07/17/18 07/17/18 predniSONE 10 mg PO DAILY 07/17/18 07/17/18 Allergies Allergy/AdvReac Type Severity Reaction Status Date / Time No Known Allergies Allergy Verified 07/17/18 16:31 Review of Systems ROS Other: All systems not noted in ROS Statement are negative. <Mesfin Jacob - Last Filed: 07/17/18 16:37> ROS Other: All systems not noted in ROS Statement are negative. <Gordy Palacio - Last Filed: 07/17/18 20:45> ROS Statement: Those systems with pertinent positive or pertinent negative responses have been documented in the HPI. Past Medical History Past Medical History: GERD/Reflux, Hyperlipidemia, Hypertension, Thyroid Disorder History of Any Multi-Drug Resistant Organisms: None Reported Past Surgical History: AICD, Pacemaker, Tonsillectomy Additional Past Surgical History / Comment(s): vein stripping Past Anesthesia/Blood Transfusion Reactions: No Reported Reaction Type of Cardiac Device: Permanent Pacemaker, AICD Device Placement Date:: 2011 Past Psychological History: No Psychological Hx Reported Smoking Status: Never smoker Past Alcohol Use History: Rare - Past Family History Father Family Medical History: Myocardial Infarction (PR) Mother History Unknown: Yes <Mesfin Jacob - Last Filed: 07/17/18 16:37> General Exam General appearance: alert, anxious, in distress Head exam: Present: normocephalic Eye exam: Present: normal appearance, PERRL, EOMI. Absent: scleral icterus, conjunctival injection, periorbital swelling ENT exam: Present: mucous membranes dry Neck exam: Present: normal inspection. Absent: tenderness, meningismus, lymphadenopathy Respiratory exam: Present: decreased breath sounds. Absent: respiratory distress, wheezes, rales, rhonchi, stridor Cardiovascular Exam: Present: regular rate, normal rhythm, normal heart sounds. Absent: systolic murmur, diastolic murmur, rubs, gallop, clicks GI/Abdominal exam: Present: soft, normal bowel sounds. Absent: distended, tenderness, guarding, rebound, rigid Extremities exam: Present: normal inspection, full ROM, normal capillary refill , pedal edema, other (No overt tenderness palpation of the hips or extremities.) . Absent: tenderness, joint swelling, calf tenderness Back exam: Present: normal inspection Neurological exam: Present: alert, oriented X3, CN II-XII intact Psychiatric exam: Present: normal affect, normal mood Skin exam: Present: warm, dry, intact, normal color. Absent: rash <Mesfin Jacob - Last Filed: 07/17/18 16:37> Limitations: altered mental status, physical limitation General appearance: obtunded, in distress Head exam: Present: normocephalic, normal inspection. Absent: atraumatic ( Patient is laceration to scalp) Eye exam: Present: other (Patient's pupils are fixed and dilated). Absent: scleral icterus, conjunctival injection, periorbital swelling ENT exam: Present: normal exam, mucous membranes moist Neck exam: Present: normal inspection. Absent: tenderness, meningismus, lymphadenopathy Respiratory exam: Absent: respiratory distress, wheezes, rales, rhonchi, stridor Cardiovascular Exam: Present: bradycardia (PEA), normal heart sounds. Absent: systolic murmur, diastolic murmur, rubs, gallop, clicks GI/Abdominal exam: Present: soft, normal bowel sounds. Absent: distended, tenderness, guarding, rebound, rigid Extremities exam: Present: normal inspection, full ROM, normal capillary refill. Absent: tenderness, pedal edema, joint swelling, calf tenderness Back exam: Present: normal inspection Neurological exam: Present: altered Skin exam: Present: cyanosis, pallor, mottled. Absent: rash <Gordy Palacio - Last Filed: 07/17/18 20:45> - General Exam Comments Initial Comments: This a well-developed asthenic appearing female who is awake alert anxious and hyperventilating. Cervical collar is in place. (Mesfin Jacob) Course <Mesfin Jacob - Last Filed: 07/17/18 16:37> <Gordy Palacio - Last Filed: 07/17/18 20:45> Vital Signs 07/17/18 07/17/18 07/17/18 16:32 17:36 17:49 Pulse Rate 66 69 Respiratory 26 H 20 Rate Blood Pressure 128/69 90/50 O2 Sat by Pulse 99 96 Oximetry 07/17/18 19:00 Pulse Rate 80 Respiratory Rate Blood Pressure O2 Sat by Pulse 98 Oximetry - Reevaluation(s) Reevaluation #1: 07/17/18 16:37 The patient's care is endorsed to Dr. Palacio at our shift change (Mesfin Jacob) Reevaluation #2: 07/17/18 20:40 Patient was taken down to x-ray for imaging, and x-ray, patient became unresponsive. Patient at that time was found to be without pulse. Patient then had CPR prior began. Patient was elevated, discussed protocol was initiated. Family was updated on condition, family made clear the patient was to be a DO NOT RESUSCITATE, care was withdrawn (Gordy Palacio) Reevaluation #3: 07/17/18 20:42 Patient is pulseless, apneic with pupils fixed and dilated, patient is Family is aware of patient's passing, questions are answered (Gordy Palacio) Reevaluation #4: 07/17/18 20:44 appeals examiner is aware, Dr. Tomlin is paged (Gordy Palacio) Procedures - Intubation Time Out Performed: Yes Laryngoscope: Akiko Size: 4 ET Tube Size: 6.5 ET Tube Uncuffed: No Tube Secured Location: teeth Tube Placement Confirmation: visualized tube passing through cords Patient Tolerated Procedure: well Intubation Complications: none <Gordy Palacio - Last Filed: 07/17/18 20:45> Medical Decision Making - EKG Data -: EKG Interpreted by Me EKG shows normal: sinus rhythm (Sinus rhythm a rate 66. Interval 158 QRS duration 142 QT since QTC 454/475 left bundle-branch block pattern no acute ST- T wave changes) <Mesfin Jacob - Last Filed: 07/17/18 16:37> - Lab Data Result diagrams: 07/17/18 16:43 07/17/18 16:43 - Radiology Data Radiology results: report reviewed (CT brain C-spine is negative for traumatic injury), image reviewed <Gordy Palacio - Last Filed: 07/17/18 20:45> - Lab Data Lab Results 07/17/18 07/17/18 07/17/18 Range/Units 16:43 16:43 16:43 WBC 9.3 (3.8-10.6) k/uL RBC 3.31 L (3.80-5.40) m/uL Hgb 10.1 L (11.4-16.0) gm/dL Hct 30.9 L (34.0-46.0) % MCV 93.5 (80.0-100.0) fL MCH 30.4 (25.0-35.0) pg MCHC 32.6 (31.0-37.0) g/dL RDW 15.1 (11.5-15.5) % Plt Count 211 (150-450) k/uL Neutrophils % 88 % Lymphocytes % 8 % Monocytes % 3 % Eosinophils % 1 % Basophils % 0 % Neutrophils # 8.2 H (1.3-7.7) k/uL Lymphocytes # 0.7 L (1.0-4.8) k/uL Monocytes # 0.3 (0-1.0) k/uL Eosinophils # 0.1 (0-0.7) k/uL Basophils # 0.0 (0-0.2) k/uL Sodium 135 L (137-145) mmol/L Potassium 5.8 H (3.5-5.1) mmol/L Chloride 105 (98-107) mmol/L Carbon Dioxide 15 L (22-30) mmol/L Anion Gap 15 mmol/L BUN 127 H* (7-17) mg/dL Creatinine 6.19 H (0.52-1.04) mg/dL Est GFR (CKD-EPI)AfAm 7 (>60 ml/min/1.73 sqM) Est GFR (CKD-EPI)NonAf 6 (>60 ml/min/1.73 sqM) Glucose 120 H (74-99) mg/dL Calcium 8.0 L (8.4-10.2) mg/dL Magnesium 1.6 (1.6-2.3) mg/dL Total Bilirubin 0.7 (0.2-1.3) mg/dL AST 12 L (14-36) U/L ALT 18 (9-52) U/L Alkaline Phosphatase 91 (38-126) U/L Total Creatine Kinase 37 (30-135) U/L CK-MB (CK-2) 2.7 H (0.0-2.4) ng/mL CK-MB (CK-2) Rel Index 7.3 Troponin I 0.063 H* (0.000-0.034) ng/mL Total Protein 5.7 L (6.3-8.2) g/dL Albumin 3.1 L (3.5-5.0) g/dL Urine Color Urine Appearance (Clear) Urine pH (5.0-8.0) Ur Specific Kelly (1.001-1.035) Urine Protein (Negative) Urine Glucose (UA) (Negative) Urine Ketones (Negative) Urine Blood (Negative) Urine Nitrite (Negative) Urine Bilirubin (Negative) Urine Urobilinogen (<2.0) mg/dL Ur Leukocyte Esterase (Negative) Urine WBC (0-5) /hpf Amorphous Sediment (None) /hpf Urine Bacteria (None) /hpf Urine Mucus (None) /hpf 07/17/18 Range/Units 19:15 WBC (3.8-10.6) k/uL RBC (3.80-5.40) m/uL Hgb (11.4-16.0) gm/dL Hct (34.0-46.0) % MCV (80.0-100.0) fL MCH (25.0-35.0) pg MCHC (31.0-37.0) g/dL RDW (11.5-15.5) % Plt Count (150-450) k/uL Neutrophils % % Lymphocytes % % Monocytes % % Eosinophils % % Basophils % % Neutrophils # (1.3-7.7) k/uL Lymphocytes # (1.0-4.8) k/uL Monocytes # (0-1.0) k/uL Eosinophils # (0-0.7) k/uL Basophils # (0-0.2) k/uL Sodium (137-145) mmol/L Potassium (3.5-5.1) mmol/L Chloride (98-107) mmol/L Carbon Dioxide (22-30) mmol/L Anion Gap mmol/L BUN (7-17) mg/dL Creatinine (0.52-1.04) mg/dL Est GFR (CKD-EPI)AfAm (>60 ml/min/1.73 sqM) Est GFR (CKD-EPI)NonAf (>60 ml/min/1.73 sqM) Glucose (74-99) mg/dL Calcium (8.4-10.2) mg/dL Magnesium (1.6-2.3) mg/dL Total Bilirubin (0.2-1.3) mg/dL AST (14-36) U/L ALT (9-52) U/L Alkaline Phosphatase (38-126) U/L Total Creatine Kinase (30-135) U/L CK-MB (CK-2) (0.0-2.4) ng/mL CK-MB (CK-2) Rel Index Troponin I (0.000-0.034) ng/mL Total Protein (6.3-8.2) g/dL Albumin (3.5-5.0) g/dL Urine Color Yellow Urine Appearance Clear (Clear) Urine pH 5.0 (5.0-8.0) Ur Specific Kelly 1.009 (1.001-1.035) Urine Protein 1+ H (Negative) Urine Glucose (UA) Negative (Negative) Urine Ketones Negative (Negative) Urine Blood Trace H (Negative) Urine Nitrite Negative (Negative) Urine Bilirubin Negative (Negative) Urine Urobilinogen <2.0 (<2.0) mg/dL Ur Leukocyte Esterase Negative (Negative) Urine WBC <1 (0-5) /hpf Amorphous Sediment Occasional H (None) /hpf Urine Bacteria Rare H (None) /hpf Urine Mucus Rare H (None) /hpf Disposition <Mesfin Jacob - Last Filed: 07/17/18 16:37> Preliminary Cause of : CPA <Gordy Palacio - Last Filed: 07/17/18 20:45> Clinical Impression: Closed head injury, Cardiopulmonary arrest, Fall Disposition: Referrals: Nik Tomlin DO [Primary Care Provider] - 1-2 days
[2018-07-17] MEDS ORDERED: DIPH,PERTUS(ACELL)TETVAC-LF 0.5 ML VIAL IM ONE (16:09)
[2018-07-17 17:10] LABS: Basophils % (A) 0 %; Eosinophils # (A) 0.1 k/uL (0-0.7); Eosinophils % (A) 1 %; HCT 30.9 % (34.0-46.0); HGB 10.1 gm/dL (11.4-16.0); Lymphocytes # (A) 0.7 k/uL (1.0-4.8); Lymphocytes % (A) 8 %; MCH 30.4 pg (25.0-35.0); MCHC 32.6 g/dL (31.0-37.0); MCV 93.5 fL (80.0-100.0); Mean Platelet Volume 7.7; Monocytes # (A) 0.3 k/uL (0-1.0); Monocytes % (A) 3 %; Neutrophils # (A) 8.2 k/uL (1.3-7.7); Neutrophils % (A) 88 %; Platelet Count 211 k/uL (150-450); RBC 3.31 m/uL (3.80-5.40); RDW 15.1 % (11.5-15.5); WBC 9.3 k/uL (3.8-10.6)
[2018-07-17 17:15] LABS: Albumin 3.1 g/dL (3.5-5.0); Magnesium 1.6 mg/dL (1.6-2.3); Potassium 5.8 mmol/L (3.5-5.1); Total Bilirubin 0.7 mg/dL (0.2-1.3); Total Protein 5.7 g/dL (6.3-8.2)
[2018-07-17 17:27] LABS: Creatine Kinase MB 2.7 ng/mL (0.0-2.4)
[2018-07-17 17:36] LABS: Troponin I 0.063 ng/mL (0.000-0.034)
[2018-07-17 17:43] VITALS: RESP 20
[2018-07-17 17:50] VITALS: BP 90/50
--- NOTE | 2018-07-17 17:55 | CT ---
EXAMINATION TYPE: CT brain cspine wo con DATE OF EXAM: 07/17/2018 COMPARISON: None. HISTORY: Fall CT DLP: 1274.3 mGycm Automated exposure control for dose reduction was used. TECHNIQUE: CT scan of the head and cervical spine are performed without contrast. FINDINGS: There is no acute intracranial hemorrhage, mass effect, or midline shift identified. The ventricles and sulci are within normal limits in size. The globes are intact and the visualized sin uses are clear. Cervical spine is visualized in its entirety from C1 through upper thoracic levels and demonstrates s atisfactory alignment without evidence of acute fracture or dislocation. Multilevel advanced cervical spondylosis changes are noted. Prevertebral soft tissue appears within normal limits. The C1-C2 art iculation is unremarkable. IMPRESSION: 1. There is no acute fracture or dislocation evident in the cervical spine. 2. No acute intracranial hemorrhage, mass effect, or midline shift is seen.
[2018-07-17 19:24] LABS: Amorphous Sediment,Urine Occasional /hpf; Appearance,Urine Clear (Clear); Bacteria,Urine Rare /hpf; Bilirubin,Urine Negative (Negative); Blood,Urine Trace (Negative); Color,Urine Yellow; Glucose,Urine (UA) Negative (Negative); Ketones,Urine Negative (Negative); Leukocyte Esterase,Urine Negative (Negative); Mucus,Urine Rare /hpf; Nitrite,Urine Negative (Negative); Protein,Urine 1+ (Negative); Specific Gravity,Urine 1.009 (1.001-1.035); Urobilinogen,Urine <2.0 mg/dL (<2.0); WBC,Urine <1 /hpf (0-5)
[2018-07-17 19:30] VITALS: PULSE 80
[2018-07-17] MEDS ORDERED: EPINEPHrine 10 ML SYRINGE (0.1 MG/ML) ONE (19:43)
[2018-07-17] MEDS ORDERED: SODIUM BICARB 8.4% 50 ML SYR (1 MEQ/ML) ONE (19:43)
--- NOTE | 2018-07-17 20:53 | XR ---
PROCEDURE: XR pelvis AP view 3V DATE AND TIME: 07/17/2018 8:15 PM CLINICAL INDICATION: LOCATED WITHIN [facility] Pain TECHNIQUE: Department protocol. 3V COMPARISON: Ultrasound report from 05/10/2017 FINDINGS: The skeletal structures are negative for acute fracture or malalignment. Soft tissues notable for left paraspinal calcification which is incompletely visualized on this radio graph. It is noted the patient had a 7 cm abdominal aortic aneurysm on the prior ultrasound study, an d this radiographic calcification is likely related to the aneurysm. IMPRESSION: 1. NEGATIVE FOR FRACTURE OR MALALIGNMENT. 2. AAA.
--- NOTE | 2018-07-17 20:56 | XR ---
EXAMINATION: XR chest 2V DATE AND TIME: 07/17/2018 8:15 PM CLINICAL INDICATION: cough TECHNIQUE: PA and lateral COMPARISON: 05/09/2017 FINDINGS: The left hemidiaphragm is completely silhouetted and there is a meniscus laterally, consistent with p rominent left pleural effusion with complete left lower lobe and lingular atelectasis. Concurrent lef t lower lobe/lingula bronchopneumonia can be clinically considered. Left upper lung parenchyma is isha ar and well-expanded. The right lung is clear and the right pleural space is negative. There is no pneumothorax. Cardiac pacemaker redemonstrated. The cardiac silhouette is moderately enlarged and stable. The skeletal structures and soft tissues are negative for acute findings. IMPRESSION: Large left pleural effusion with airlessness throughout the left lower lobe and lingula.
== END 2018-07-17 22:35 | disposition expired ==
LOC: EC 15:58
DX: S01.01XA Laceration without foreign body of scalp, initial encounter (principal); I46.9 Cardiac arrest, cause unspecified; K21.9 Gastro-esophageal reflux disease without esophagitis; E78.5 Hyperlipidemia, unspecified; I10 Essential (primary) hypertension; E07.9 Disorder of thyroid, unspecified; Z23 Encounter for immunization; Z95.810 Presence of automatic (implantable) cardiac defibrillator; Z79.82 Long term (current) use of aspirin; Z79.52 Long term (current) use of systemic steroids; Z79.899 Other long term (current) drug therapy; W07.XXXA Fall from chair, initial encounter
CPT/HCPCS: 99285 ×2; 31500 ×2; 92950 ×2; 96374 ×2; 96361 ×4; 90471 ×2; 36415; 94002; 93005; 80053; 82550; 82553; 83735; 84484; 85025; 81001; 72170; 71046; 72125; 70450; 90715; J0171; J0131